=== PATIENT | male | born 2000 | race Two or more races ===

== ENCOUNTER 2022-04-16 00:48 | Emergency (ER) | payer SELFPAY ==
[~2022-04-16] VITALS: Ht 172.7 cm; Wt 84.1 kg
[2022-04-16] MEDS ORDERED: SODIUM CHLORIDE 0.9% 1,000 ML IV ONE ×2 (01:15)
[2022-04-16 04:02] VITALS: BP 129/77
== END 2022-04-16 04:27 | disposition home or self-care (01) ==
LOC: EMS 00:51
DX: F10.129 Alcohol abuse with intoxication, unspecified (principal)
CPT/HCPCS: 99283; 96360; 96361; 36415; G0480; J7030